=== PATIENT | male | born 1970 | race Caucasian/White ===

== ENCOUNTER 2016-05-12 12:54 | Emergency (ER) | payer OTHER ==
[~2016-05-12] VITALS: Ht 165.1 cm; Wt 63.5 kg
[2016-05-12 13:10] VITALS: BP 132/84
[2016-05-12] MEDS ORDERED: ACETAMINOPHEN ES 500 MG TABLET ONE (13:15)
[2016-05-12] MEDS ORDERED: ONDANSETRON 4 MG TAB.RAPDIS ONE (13:28)
[2016-05-12] MEDS ORDERED: ALBUTEROL FS 2.5 MG/3 ML VIAL.NEB ONE (13:31)
[2016-05-12] MEDS ORDERED: IPRATROPIUM NEB FS 0.5 MG/2.5 ML AMPUL.NEB ONE (13:31)
[2016-05-12] MEDS: ONDANSETRON 4 MG TAB.RAPDIS SL ONE (13:32)
[2016-05-12] MEDS: ACETAMINOPHEN 325 MG TABLET PO ONE (13:32)
[2016-05-12] MEDS: IPRATROPIUM NEB FS 0.5 MG/2.5 ML AMPUL.NEB NEB ONE (13:42)
[2016-05-12] MEDS: ALBUTEROL FS 2.5 MG/3 ML VIAL.NEB NEB ONE (13:42)
== END 2016-05-12 15:43 | disposition home or self-care (01) ==
LOC: ER 12:58
DX: J20.9 Acute bronchitis, unspecified (principal); J44.9 Chronic obstructive pulmonary disease, unspecified; Z72.0 Tobacco use; F32.9 Major depressive disorder, single episode, unspecified; F31.9 Bipolar disorder, unspecified; C96.9 Malignant neoplasm of lymphoid, hematopoietic and related tissue, unspecified; Z88.8 Allergy status to other drugs, medicaments and biological substances
CPT/HCPCS: 71010-TC; 87400; A4606; Q0162; Z7610

== ENCOUNTER 2016-11-27 15:57 | Inpatient (IN) | payer OTHER ==
[~2016-11-27] VITALS: Ht 165.1 cm; Wt 74.8 kg
--- NOTE | 2016-11-27 15:58 | NUR ---
PT DANA MENDOZA, C/O LT SIDED CHEST PAIN AND LUE NUMBNESS THAT STARTED 20 MINS PRIOR TO ARRIVAL. PT GOWNED AND PLACED ON MONITOR. VSS. AWAITINGMD EVAL.
--- NOTE | 2016-11-27 16:13 | NUR ---
DR GRFA AT BEDSIDE FOR EVAL.
--- NOTE | 2016-11-27 16:18 | NUR ---
CALLED [facility] STROKE HOTLINE SPOKE WITH SHABBIR. [phone] EXPECTING A CALL FROM DR FRANK.
--- NOTE | 2016-11-27 16:20 | NUR ---
PT TO RADIOLOGY FOR HEAD CT SCAN VIA [facility].
[2016-11-27] MEDS ORDERED: IOHEXOL-350 100 ML VIAL IV ONE (16:23)
--- NOTE | 2016-11-27 16:27 | NUR ---
DR MARTINEZ ON THE PHONE WITH DR SALEH.
[2016-11-27] MEDS ORDERED: IV NS 0.9% 1,000 ML BAG IV ONE (16:30)
--- NOTE | 2016-11-27 16:50 | NUR ---
NEURO DR HUGHES, TELE STROKE. DR GRAF AT BEDSIDED.
[2016-11-27 16:53] LABS: BASOPHILS # (AUTO) 0.1 /CMM (0.0-0.2); BASOPHILS % (AUTO) 1.2 % (0.0-2.0); EOSINOPHILS # (AUTO) 0.1 /CMM (0.0-0.7); HEMATOCRIT 42 % (39-51); HEMOGLOBIN 14.2 g/dL (13.5-17.5); LYMPHOCYTES # (AUTO) 1.1 /CMM (0.8-4.8); LYMPHOCYTES % (AUTO) 23.1 % (20.0-44.0); MEAN CORPUSCULAR HEMOGLOBIN 29 PG (26.0-33.0); MEAN CORPUSCULAR HGB CONC 34 g/dl (31.0-36.0); MEAN CORPUSCULAR VOLUME 87 fL (80-96); MONOCYTES # (AUTO) 0.3 /CMM (0.1-1.30); MONOCYTES % (AUTO) 6.5 % (2.0-12.0); NEUTROPHILS # (AUTO) 3.2 /CMM (1.8-8.9); NEUTROPHILS % (AUTO) 67.2 % (43.0-81.0); PLATELET COUNT (AUTO) 161 /CMM (150-450); RDW COEFFICIENT OF VARIATION 12.5 (11.5-15.0); RED BLOOD CELL COUNT(AUTO) 4.87 MIL/uL (4.5-6.0); WHITE BLOOD COUNT (AUTO) 4.8 K/uL (4.3-11.0)
[2016-11-27 17:05] LABS: CALCIUM, SERUM 7.6 mg/dL (8.5-10.1); CARBON DIOXIDE 29 mmol/L (21-32); CHLORIDE 104 mmol/L (98-107); CREATININE 0.9 mg/dL (0.6-1.3); GLUCOSE 95 mg/dL (74-106); POTASSIUM 4.1 mmol/L (3.5-5.1); SODIUM SERUM 136 mmol/L (136-145); UREA NITROGEN, BLOOD 19 mg/dL (7-18)
[2016-11-27 17:09] LABS: INR 1.1 (0.87-1.13); PROTHROMBIN TIME 11.5 SECS (9.5-12.7)
[2016-11-27 17:13] LABS: TROPONIN I < 0.017 ng/mL (0.00-0.056)
[2016-11-27] MEDS ORDERED: LEVE500T9 PO (17:17)
[2016-11-27] MEDS ORDERED: EMTR1TAB12 PO (17:17)
[2016-11-27] MEDS ORDERED: ATAZ300C PO (17:19)
--- NOTE | 2016-11-27 17:30 | NUR ---
CALLED [employer], HAT FORMING MACHINE OPERATOR WAS PAGED.
--- NOTE | 2016-11-27 18:09 | NUR ---
REPORT GIVEN TO SATISH. PT AWAITING TRANSFER TO FLOOR.
--- NOTE | 2016-11-27 19:45 | NUR ---
BENCH GRINDER INITIAL NOTES PT IS RESTING IN BED, A/O X3 NO SIGNS OF SOB OR DISTRESS. POLICE OFFICERS AT BED SIDE. IV ACCESS ON RIGHT FA#18 INTACT WITH NS @ 75 ML/HR RUNNING. BED IS IN LOW AND LOCKED POSITION. WILL KEEP PT NPO POST MIDNIGHT. WILL CONTINUE TO MONITOR PT
[2016-11-27 20:00] VITALS: BP 116/84
--- NOTE | 2016-11-27 20:00 | NUR ---
ALLERGIES PT STATED THAT HE IS ALLERGIC TO MORPHINE, PER PT HE WENT INOT "SHOCK'. MORPHINE WAS ADDED TO THE ALLERGIES
[2016-11-27] MEDS ORDERED: MAGNESIUM HYDROXIDE 30 ML UDC PO PRN (20:30)
[2016-11-27] MEDS ORDERED: ACETAMINOPHEN 325 MG TABLET PO PRN (20:30)
[2016-11-27] MEDS ORDERED: MAG HYDROX/AL HYDROX/SIMETH 30 ML UDC PO PRN (20:30)
[2016-11-27] MEDS ORDERED: ONDANSETRON HCL/PF 4 MG/2 ML VIAL IVP PRN (20:30)
[2016-11-27] MEDS ORDERED: Z GUARD REMEDY 2 OZ OINT TP PRN (20:30)
[2016-11-27] MEDS: IV NS 0.9% 1,000 ML IV PRN (21:19)
[2016-11-27] MEDS ORDERED: ATORVASTATIN 40 MG TABLET PO SCH (22:00)
--- NOTE | 2016-11-27 22:33 | NUR ---
CODE STATUS SPOKE WITH MERCHANDISE PROCESSOR DR. KRAUS ON THE [facility] FLOOR ABOUT THE PATIENTS WISHES TO BE DNR/DNI. RECIEVED THE OKAY FROM DR KRAUS TO INPUT THE ORDER. DNR/DNI STATUS IS NOW ACTIVE.
[2016-11-28 00:24] VITALS: BP 120/75
[2016-11-28 04:33] VITALS: BP 113/70
[2016-11-28] MEDS: IV NS 0.9% 1,000 ML IV PRN (05:53)
--- NOTE | 2016-11-28 06:28 | NUR ---
PRODUCTION SORTER CLOSING NOTES PT IS RESTING IN BED, NO SIGNS OF SOB OR DISTRESS, DENIES PAIN. POLICE AT BED SIDE WITH PATIENT. DNR ORDER WAS OBTAINED AND INPUTTED. PT SHOW SINUS MARK 52 ON TELE MONITOR. IV ACCESS IS INTACT AND PATENT WITH FLUIDS RUNNING AT 75 ML/HR. BED IS IN LOW AND LOCKED POSITION, CALL LIGHT IS WITHIN REACH. WILL ENDORSE TO DAY SHIFT
[2016-11-28 06:55] VITALS: BP 121/70
--- NOTE | 2016-11-28 07:26 | NUR ---
METHODS AND PROCEDURES ANALYST OPENING NOTES RECEIVED PATIENT IN BED, AWAKE, HOB ELEVATED, NO SOB OR DISTRESS NOTED. PATIENT ON TELE MONITOR SR MARK 48 HEART RATE. POLICE AT BEDSIDE. A/O X4 VERBALLY RESPONSIVE AND ABLE TO MAKE NEEDS KNOWN. IV INTACT AND PATENT. KEEP PATIENT CLEAN AND COMFORTABLE IN BED, CALL LIGHT WITHIN PATIENT REACH, WILL CONTINUE TO MONITOR ACCORDINGLY.
[2016-11-28] MEDS ORDERED: PANTOPRAZOLE 40 MG TABLET.DR PO SCH (07:30)
[2016-11-28 07:46] LABS: BASOPHILS % (AUTO) 0.3 % (0.0-2.0); EOSINOPHILS # (AUTO) 0.2 /CMM (0.0-0.7); EOSINOPHILS % (AUTO) 3.2 % (0.0-6.0); HEMATOCRIT 45 % (39-51); HEMOGLOBIN 15.7 g/dL (13.5-17.5); LYMPHOCYTES # (AUTO) 1.6 /CMM (0.8-4.8); LYMPHOCYTES % (AUTO) 30.9 % (20.0-44.0); MEAN CORPUSCULAR HEMOGLOBIN 30 PG (26.0-33.0); MEAN CORPUSCULAR HGB CONC 35 g/dl (31.0-36.0); MEAN CORPUSCULAR VOLUME 87 fL (80-96); MONOCYTES # (AUTO) 0.4 /CMM (0.1-1.30); MONOCYTES % (AUTO) 7.2 % (2.0-12.0); NEUTROPHILS # (AUTO) 3.1 /CMM (1.8-8.9); NEUTROPHILS % (AUTO) 58.4 % (43.0-81.0); PLATELET COUNT (AUTO) 165 /CMM (150-450); RDW COEFFICIENT OF VARIATION 13.6 (11.5-15.0); WHITE BLOOD COUNT (AUTO) 5.3 K/uL (4.3-11.0)
[2016-11-28 08:12] LABS: CALCIUM, SERUM 8.1 mg/dL (8.5-10.1); CREATININE 0.9 mg/dL (0.6-1.3); PHOSPHORUS 3.6 mg/dL (2.5-4.9); POTASSIUM 4.9 mmol/L (3.5-5.1)
[2016-11-28] MEDS ORDERED: TENOFOVIR DISOPROXIL FUMARATE 300 MG TABLET PO SCH (09:00)
[2016-11-28] MEDS ORDERED: EMTRICITABINE/TENOFOVIR 1 TAB PO SCH (09:00)
[2016-11-28] MEDS ORDERED: CARVEDILOL 3.125 MG TABLET PO SCH (09:00)
[2016-11-28] MEDS ORDERED: EMTRICITABINE 200 MG CAPSULE PO SCH (09:00)
[2016-11-28] MEDS ORDERED: LEVETIRACETAM (250 MG) 250 MG TABLET PO SCH ×2 (09:00→21:00)
[2016-11-28] MEDS ORDERED: ASPIRIN 81 MG TAB.CHEW PO SCH (09:00)
[2016-11-28] MEDS ORDERED: ASPIRIN 325 MG TABLET PO SCH (09:00)
[2016-11-28 09:15] LABS: TROPONIN I < 0.017 ng/mL (0.00-0.056)
[2016-11-28 10:24] VITALS: BP 121/70
--- NOTE | 2016-11-28 13:25 | NUR ---
RN NOTES PATIENT IS WITH POLICE OFFICERS AT BEDSIDE WITH NO CHEST PAIN OR DISTRESS NOTED.
--- NOTE | 2016-11-28 17:40 | NUR ---
RN NOTES DISCHARGE INSTRUCTIONS GIVEN TO PATIENT AND ABLE TO UNDERSTAND INSTRUCTIONS AND SIGNED DISCHARGE PAPER AND BELONGINGS LIST. PATIENT LEFT VIA WHEELCHAIR ACCOMPANIED WITH POLICE OFFICERS IN STABLE CONDITION. NO SOB OR DISTRESS NOTED. VITALS SIGNS CHECKED AND RECORDED. MD AND CHARGE NURSE AWARE.
== END 2016-11-28 17:40 | DRG 48 ==
LOC: ER 15:58 → TELE 18:08 → MED 11-28 09:30
PROVIDERS: ADMIT Internal Medicine; ATTEND Internal Medicine
DX: G62.9 Polyneuropathy, unspecified (principal); D68.59 Other primary thrombophilia; I25.2 Old myocardial infarction; I10 Essential (primary) hypertension; E78.5 Hyperlipidemia, unspecified; Z86.73 Personal history of transient ischemic attack (TIA), and cerebral infarction without residual deficits; F17.210 Nicotine dependence, cigarettes, uncomplicated; B19.20 Unspecified viral hepatitis C without hepatic coma; M94.0 Chondrocostal junction syndrome [Tietze]
CPT/HCPCS: 36415; 70450-TC; 70496-TC; 70498-TC; 71010-TC; 80048-TC; 80061-TC; 80305; 83735-TC; 84100-TC; 84439-TC; 84443-TC; 84484-TC; 85025-TC; 85730-TC; 86850-TC; 87081-TC; 93307-TC; A4606; J7030; J7040; Q9967; Z7610

== ENCOUNTER 2018-05-12 08:25 | Emergency (ER) | payer BC, OTHER ==
[~2018-05-12] VITALS: Ht 165.1 cm; Wt 63.5 kg
[~2018-05-12 08:25] MED LIST: ATAZ300C PO; EMTR1TAB12 PO; LEVE500T9 PO
--- NOTE | 2018-05-12 08:40 | NUR ---
PT BIB SELF c/o pain left elbow and arm x 30 mins, PT IS AAOX4, NOT IN RESPIRATORY DISTRESS, V/S STABLE, KEPT RESTED AND COMFORTABLE.
--- NOTE | 2018-05-12 08:44 | NUR ---
DR. VAUGHN AT BEDSIDE FOR EVAL.
[2018-05-12] MEDS ORDERED: HYDROCODONE/APAP 5/325MG 1 EACH TABLET PO ONE (09:00)
[2018-05-12] MEDS ORDERED: HYDROCODONE/APAP 5/325MG 1 EACH TABLET ONE (09:10)
--- NOTE | 2018-05-12 09:14 | NUR ---
RADIOLOGY AT BEDSIDE FOR XRAY.
--- NOTE | 2018-05-12 10:02 | NUR ---
Patient discharged to home in stable condition. Written and verbal after care instructions given. Patient verbalizes understanding of instruction.
[2018-05-12 10:08] VITALS: BP 131/88
[2018-05-12] MEDS ORDERED: LORAZEPAM INJ 2 MG/ML VIAL IV ONE (13:30)
== END 2018-05-12 10:09 | disposition home or self-care (01) ==
LOC: ER 08:28
DX: S50.12XA Contusion of left forearm, initial encounter (principal); F17.200 Nicotine dependence, unspecified, uncomplicated; Z85.830 Personal history of malignant neoplasm of bone; Z86.19 Personal history of other infectious and parasitic diseases; Z88.3 Allergy status to other anti-infective agents; W18.09XA Striking against other object with subsequent fall, initial encounter; Y93.89 Activity, other specified; Y92.89 Other specified places as the place of occurrence of the external cause; Y99.0 Civilian activity done for income or pay
CPT/HCPCS: 29105; 73080; 73090; 99283; A4606; Z7610

== ENCOUNTER 2023-08-17 13:52 | Inpatient (IN) | payer BC, OTHER ==
[~2023-08-17] VITALS: Ht 161.3 cm; Wt 67.6 kg
[2023-08-17 14:43] LABS: BASOPHILS # (AUTO) 0.1 K/uL (0.0-0.2); BASOPHILS % (AUTO) 0.9 % (0.0-2.0); EOSINOPHILS # (AUTO) 0.1 K/uL (0.0-0.7); EOSINOPHILS % (AUTO) 1.2 % (0.0-6.0); HEMATOCRIT 47 % (39-51); HEMOGLOBIN 16.1 g/dL (13.5-17.5); LYMPHOCYTES # (AUTO) 1.3 K/uL (0.8-4.8); LYMPHOCYTES % (AUTO) 19.6 % (20.0-44.0); MEAN CORPUSCULAR HEMOGLOBIN 30 PG (26.0-33.0); MEAN CORPUSCULAR HGB CONC 34 g/dl (31.0-36.0); MEAN CORPUSCULAR VOLUME 88 fL (80-96); MONOCYTES # (AUTO) 0.4 K/uL (0.1-1.30); MONOCYTES % (AUTO) 5.8 % (2.0-12.0); NEUTROPHILS % (AUTO) 72.5 % (43.0-81.0); PLATELET COUNT (AUTO) 184 K/uL (150-450); RED BLOOD CELL COUNT(AUTO) 5.39 MIL/uL (4.5-6.0); RED CELL DISTRIBUTION WIDTH 13.3 % (11.5-15.0); WHITE BLOOD COUNT (AUTO) 6.9 K/uL (4.3-11.0)
[2023-08-17] MEDS ORDERED: TRAZ-257 PO (14:43)
[2023-08-17] MEDS ORDERED: LEVE100023 PO (14:43)
[2023-08-17] MEDS ORDERED: TOPI25TA PO (14:43)
[2023-08-17] MEDS ORDERED: ALPR2TAB7 PO (14:43)
[2023-08-17] MEDS ORDERED: APIX5TAB PO (14:43)
[2023-08-17] MEDS ORDERED: SERT50TA PO (14:43)
[2023-08-17 15:07] LABS: CALCIUM, SERUM 8.9 mg/dL (8.5-10.1); CARBON DIOXIDE 24 mmol/L (21-32); CHLORIDE 103 mmol/L (98-107); CREATININE 1.1 mg/dL (0.6-1.3); GLUCOSE 117 mg/dL (74-106); POTASSIUM 4.2 mmol/L (3.5-5.1); SODIUM SERUM 137 mmol/L (136-145); UREA NITROGEN, BLOOD 17 mg/dL (7-18)
[2023-08-17 15:22] LABS: ALANINE AMINOTRANSFERASE 68 U/L (12-78); ALBUMIN 4.1 g/dL (3.4-5.0); ALKALINE PHOSPHATASE 63 U/L (46-116); ASPARTATE AMINOTRANSFERASE 43 U/L (15-37); BILIRUBIN,DIRECT 0.1 mg/dL (0.0-0.2); BILIRUBIN,TOTAL 0.5 mg/dL (0.2-1.0); NT-PRO BNP 90 pg/mL (0-125); TOTAL PROTEIN, SERUM 7.5 g/dL (6.4-8.2)
[2023-08-17 17:39] VITALS: O2SAT 98
[2023-08-17] MEDS ORDERED: ZOLPIDEM TARTRATE 5 MG TABLET PO PRN (19:00)
[2023-08-17] MEDS ORDERED: MAGNESIUM HYDROXIDE 30 ML UDC PO PRN (19:00)
[2023-08-17] MEDS ORDERED: MAG HYDROX/AL HYDROX/SIMETH 30 ML UDC PO PRN (19:00)
[2023-08-17] MEDS ORDERED: ONDANSETRON HCL/PF 4 MG/2 ML VIAL IVP PRN (19:00)
[2023-08-17] MEDS ORDERED: Z GUARD REMEDY 4 OZ OINT TP PRN (19:00)
[2023-08-17 20:00] VITALS: BP 119/85; TEMP 97.5; O2SAT 97
[2023-08-17] MEDS ORDERED: ENOXAPARIN SODIUM 40 MG/0.4 ML DISP.SYRIN SQ SCH (21:00)
[2023-08-17] MEDS: TRAZODONE 50 MG TABLET PO SCH (22:29)
[2023-08-18] VITALS: BP 101/74; TEMP 97.7; O2SAT 96
[2023-08-18 04:00] VITALS: BP 113/95; TEMP 97.7; O2SAT 97
[2023-08-18 07:00] VITALS: BP 100/70; TEMP 97.7; O2SAT 97
[2023-08-18 07:20] LABS: BASOPHILS % (AUTO) 0.4 % (0.0-2.0); EOSINOPHILS # (AUTO) 0.2 K/uL (0.0-0.7); HEMATOCRIT 45 % (39-51); HEMOGLOBIN 15.5 g/dL (13.5-17.5); LYMPHOCYTES # (AUTO) 1.6 K/uL (0.8-4.8); LYMPHOCYTES % (AUTO) 26.6 % (20.0-44.0); MEAN CORPUSCULAR HEMOGLOBIN 31 PG (26.0-33.0); MEAN CORPUSCULAR HGB CONC 35 g/dl (31.0-36.0); MEAN CORPUSCULAR VOLUME 89 fL (80-96); MONOCYTES # (AUTO) 0.5 K/uL (0.1-1.30); MONOCYTES % (AUTO) 9.1 % (2.0-12.0); NEUTROPHILS # (AUTO) 3.6 K/uL (1.8-8.9); NEUTROPHILS % (AUTO) 60.9 % (43.0-81.0); PLATELET COUNT (AUTO) 149 K/uL (150-450); RED BLOOD CELL COUNT(AUTO) 5.02 MIL/uL (4.5-6.0); RED CELL DISTRIBUTION WIDTH 13.1 % (11.5-15.0); WHITE BLOOD COUNT (AUTO) 5.9 K/uL (4.3-11.0)
[2023-08-18] MEDS: PANTOPRAZOLE 40 MG TABLET.DR PO SCH (07:55)
[2023-08-18 08:11] LABS: CALCIUM, SERUM 8.5 mg/dL (8.5-10.1); MAGNESIUM 2.1 mg/dL (1.8-2.4); PHOSPHORUS 4.6 mg/dL (2.5-4.9); POTASSIUM 3.9 mmol/L (3.5-5.1)
[2023-08-18 08:38] LABS: THYROID STIMULATING HORMONE 2.081 uIU/mL (0.358-3.74)
[2023-08-18] MEDS: ALPRAZOLAM 1 MG TABLET PO SCH (08:38)
[2023-08-18] MEDS: SERTRALINE HCL 50 MG TABLET PO SCH (08:38)
[2023-08-18] MEDS: LEVETIRACETAM (250 MG) 250 MG TABLET PO SCH (08:39)
[2023-08-18] MEDS: APIXABAN 5 MG TABLET PO SCH (08:39)
[2023-08-18] MEDS: ATORVASTATIN 10 MG TABLET PO SCH (08:39)
[2023-08-18 09:53] LABS: CHOLESTEROL 194 mg/dL (<200); HDL CHOLESTEROL 41 mg/dL (40-60); LDL 133 mg/dL (0-99); TRIGLYCERIDES 89 mg/dL (30-150)
[2023-08-18] MEDS ORDERED: NITROGLYCERIN 0.4 MG/TAB BOTTLE ONE (10:43)
[2023-08-18] MEDS ORDERED: IOHEXOL-350 100 ML VIAL IV ONE (10:43)
[2023-08-18] MEDS ORDERED: CT SWABBABLE VALVE TRANS SET 1 EA INFUS.SET MC ONE (10:44)
[2023-08-18] MEDS ORDERED: METOPROLOL TARTRATE INJ 5 MG/5 ML AMPUL ONE (10:44)
[2023-08-18] MEDS ORDERED: IV NS 0.9% 250 ML IV ONE (10:54)
[2023-08-18] MEDS: METOPROLOL TARTRATE INJ 5 MG/5 ML AMPUL IVP PRN (11:05)
[2023-08-18] MEDS: NITROGLYCERIN 0.4 MG/TAB BOTTLE SL ONE (11:08)
[2023-08-18 16:00] VITALS: BP_SYST 125; BP_SYST 98; BP_DIAS 75; BP_DIAS 80; TEMP 97.9; O2SAT 96; O2SAT 98
[2023-08-19 07:00] VITALS: BP 124/87; TEMP 97.7; O2SAT 98
[2023-08-19] MEDS ORDERED: IV NS 0.9% 1,000 ML ONE (07:21)
[2023-08-19] MEDS ORDERED: LIDOCAINE HCL/MPF 1% 30 ML VIAL IJ ONE (07:22)
[2023-08-19] MEDS ORDERED: IV SET PRIMARY PUMP SET 1 EA INFUS.SET MC ONE (07:22)
[2023-08-19 07:58] LABS: BASOPHILS % (AUTO) 0.4 % (0.0-2.0); EOSINOPHILS # (AUTO) 0.2 K/uL (0.0-0.7); EOSINOPHILS % (AUTO) 2.4 % (0.0-6.0); HEMATOCRIT 47 % (39-51); HEMOGLOBIN 16.2 g/dL (13.5-17.5); LYMPHOCYTES # (AUTO) 1.3 K/uL (0.8-4.8); LYMPHOCYTES % (AUTO) 18.7 % (20.0-44.0); MEAN CORPUSCULAR HEMOGLOBIN 31 PG (26.0-33.0); MEAN CORPUSCULAR HGB CONC 34 g/dl (31.0-36.0); MEAN CORPUSCULAR VOLUME 89 fL (80-96); MONOCYTES # (AUTO) 0.5 K/uL (0.1-1.30); MONOCYTES % (AUTO) 7.2 % (2.0-12.0); NEUTROPHILS # (AUTO) 4.8 K/uL (1.8-8.9); NEUTROPHILS % (AUTO) 71.3 % (43.0-81.0); PLATELET COUNT (AUTO) 142 K/uL (150-450); RED BLOOD CELL COUNT(AUTO) 5.28 MIL/uL (4.5-6.0); RED CELL DISTRIBUTION WIDTH 13.1 % (11.5-15.0); WHITE BLOOD COUNT (AUTO) 6.7 K/uL (4.3-11.0)
[2023-08-19] MEDS: ACETAMINOPHEN 325 MG TABLET PO PRN (08:20)
[2023-08-19] MEDS ORDERED: NITROGLYCERIN IN 5 % DEXTROSE 250 ML IV ONE (08:32)
[2023-08-19] MEDS ORDERED: IODIXANOL 150 ML IV ONE (08:52)
[2023-08-19 08:58] LABS: CALCIUM, SERUM 8.7 mg/dL (8.5-10.1); MAGNESIUM 2.2 mg/dL (1.8-2.4); PHOSPHORUS 3.9 mg/dL (2.5-4.9); POTASSIUM 3.9 mmol/L (3.5-5.1)
[2023-08-19 08:59] LABS: INR 1.13 (0.91-1.10); PROTHROMBIN TIME 11.5 SECS (9.2-11.1)
[2023-08-19] MEDS ORDERED: MIDAZOLAM HCL 2 MG/2ML VIAL ONE (09:15)
[2023-08-19] MEDS ORDERED: FENTANYL PF 100MCG/2ML AMPUL ONE (09:15)
[2023-08-19 10:27] LABS: PARTIAL THROMBOPLASTIN TIME 27.2 SEC (24.3-34.3)
[2023-08-19] MEDS ORDERED: ATOR10TA PO (10:45)
== END 2023-08-19 13:30 | DRG 287 ==
LOC: ER 13:55 → TELE 18:59
PROVIDERS: ADMIT Student in an Organized Health Care Education/Training Program; ATTEND Student in an Organized Health Care Education/Training Program
PROC: 4A023N7 Measurement of Cardiac Sampling and Pressure, Left Heart, Percutaneous Approach (ICD-10-PCS; principal; 2023-08-19)
PROC: B211YZZ Fluoroscopy of Multiple Coronary Arteries using Other Contrast (ICD-10-PCS; 2023-08-19)
DX: I25.10 Atherosclerotic heart disease of native coronary artery without angina pectoris (principal); D68.59 Other primary thrombophilia; C90.00 Multiple myeloma not having achieved remission; E78.5 Hyperlipidemia, unspecified; B19.20 Unspecified viral hepatitis C without hepatic coma; I11.0 Hypertensive heart disease with heart failure; I50.9 Heart failure, unspecified; Z79.01 Long term (current) use of anticoagulants; Z79.82 Long term (current) use of aspirin; Z86.73 Personal history of transient ischemic attack (TIA), and cerebral infarction without residual deficits; Z95.5 Presence of coronary angioplasty implant and graft; Z71.6 Tobacco abuse counseling; F17.210 Nicotine dependence, cigarettes, uncomplicated
CPT/HCPCS: 36415; 71045-TC; 75574; 80048-TC; 80061-TC; 80076-TC; 83735-TC; 83880; 84100-TC; 84443-TC; 84484-TC; 85025-TC; 85610-TC; 85730-TC; 93307-TC; A4223; G0378; J1644; J2250; J3010; J3490; J7030; J7050; Q9967